=== PATIENT | female | born 1945 | race Caucasian/White ===

== ENCOUNTER → 2016-10-17 | Outpatient (CLI) | payer BC, MEDICARE ==
[~2016-10-17] MED LIST: ALEVE220 MG PO; ANTIVERT 25MG25 MG PO; ASPIR-LOW81 MG PO; ATIVAN 0.50.5 MG/TAB PO; BYSTOLIC10 MG PO; TYLENOL 325MG325 MG PO; TYLENOL 500MG500 MG PO; VALIUM 2MG T2 MG/TAB PO; ZOFRAN 4MG T4 MG/TAB PO; ZOLOFT PO
== END ==
LOC: MC.RAD 06:50
DX: Z12.31 Encounter for screening mammogram for malignant neoplasm of breast (principal)

== ENCOUNTER → 2018-04-15 | Outpatient (CLI) | payer MEDICARE, BC | LOC: COL.PUL 03-23 08:00 | DX: R06.02 Shortness of breath (principal); Z87.891 Personal history of nicotine dependence ==

== ENCOUNTER → 2018-10-11 | Outpatient (CLI) | payer MEDICARE, BC | LOC: COL.PUL 12:27 | DX: J44.9 Chronic obstructive pulmonary disease, unspecified (principal); Z87.891 Personal history of nicotine dependence | CPT/HCPCS: J7674 ==

== ENCOUNTER → 2018-11-09 | Outpatient (CLI) | payer MEDICARE, BC | LOC: MC.RAD 07:39 | DX: Z12.31 Encounter for screening mammogram for malignant neoplasm of breast (principal) ==